=== PATIENT | male | born 1975 | race African-American/Black ===

== ENCOUNTER 2021-01-19 12:33 | Inpatient (IN) | payer MEDICAID ==
[~2021-01-19] VITALS: Ht 177.8 cm; Wt 66.8 kg
[2021-01-19 13:19] LABS: BASOPHILS % 0.9 % (0.0-2.0); EOSINOPHILS % 1.7 % (0.0-5.0); MEAN CORPUSCULAR HEMOGLOBIN 18.9 pg (28.0-32.0); MEAN CORPUSCULAR VOLUME 65.6 fL (80.0-94.0); MONOCYTES % 6.9 % (2.0-8.0); NEUTROPHILS % 74.5 % (40.0-76.0); PLATELET 372 x1000/uL (130-400); RED BLOOD CELL COUNT 3.46 mill/uL (4.7-6.1); RED CELL DISTRIBUTION WIDTH 17.6 % (11.6-14.6)
[2021-01-19 13:25] LABS: HEMATOCRIT. 22.7 % (42.0-52.0); HEMOGLOBIN. 6.5 g/dL (14.0-18.0)
[2021-01-19 13:29] LABS: CHLORIDE 111 mEq/L (98-107)
[2021-01-19 13:33] LABS: ETHANOL BLOOD < 10 mg/dL
[2021-01-19 13:46] LABS: PLATELET ESTIMATE NORMAL
[2021-01-19] MEDS ORDERED: ONDANSETRON HCL 4MG/2ML INJ IV PRN (17:00)
[2021-01-19] MEDS ORDERED: NITROGLYCERIN 0.4MG TABLET SL SL PRN (17:00)
[2021-01-19] MEDS ORDERED: GUAIFENESIN 200MG/10ML SUGAR FREE UDC PO PRN (17:00)
[2021-01-19] MEDS ORDERED: KETOROLAC 15MG/ML VIAL IV PRN (17:00)
[2021-01-19] MEDS ORDERED: IPRATROPIUM/ALBUTEROL 0.5-3(2.5)MG/3ML NEB NEB PRN (17:00)
[2021-01-19] MEDS ORDERED: DOCUSATE SODIUM 100MG CAPSULE PO PRN (17:00)
[2021-01-19] MEDS ORDERED: MAGNESIUM/ALUMINUM HYDROXIDE/SIMETHICONE 30ML UDC PO PRN (17:00)
[2021-01-19] MEDS ORDERED: CLONIDINE 0.1MG TABLET PO PRN (17:00)
[2021-01-19] MEDS ORDERED: ACETAMINOPHEN 325MG TABLET PO PRN ×2 (17:00)
[2021-01-19 17:40] LABS: T4 FREE 0.93 ng/dL (0.76-1.46)
[2021-01-19 17:43] LABS: FOLIC ACID (FOLATE) SERUM >20 ng/mL ng/mL (>5.38)
[2021-01-19 17:55] LABS: VITAMIN B12 SERUM 248 pg/mL (211-911)
[2021-01-19] MEDS ORDERED: ZOLPIDEM TARTRATE 5MG TABLET PO PRN (20:00)
[2021-01-19] MEDS: PANTOPRAZOLE SODIUM 40 MG/VIAL IV SCH (20:05)
[2021-01-19] MEDS ORDERED: POTASSIUM CHLORIDE 20MEQ TABLET SR PO NR (20:49)
[2021-01-19 22:06] VITALS: BP 102/61
[2021-01-19 22:17] LABS: CLARITY URINE CLEAR (CLEAR); COLOR URINE YELLOW (YELLOW); KETONES URINE NEGATIVE (NEGATIVE); LEUKOCYTE ESTERASE URINE NEGATIVE (NEGATIVE); NITRITE URINE NEGATIVE (NEGATIVE); OCCULT BLOOD URINE NEGATIVE (NEGATIVE); PH URINE 5.5 (4.5-8.0); PROTEIN URINE NEGATIVE (NEGATIVE); UROBILINOGEN URINE 0.2 E.U./dL (0.2-1.0)
[2021-01-19 22:30] LABS: *AMPHETAMINES SCREEN URINE NEGATIVE (NEGATIVE); *BARBITURATES SCREEN URINE NEGATIVE (NEGATIVE); *BENZODIAZEPINES SCREEN URINE NEGATIVE (NEGATIVE); *COCAINE SCREEN URINE NEGATIVE (NEGATIVE); CANNABINOID URINE SCREEN PRESUMTIVE POSITIVE (NEGATIVE); METHADONE URINE SCREEN NEGATIVE (NEGATIVE); OPIATES URINE SCREEN NEGATIVE (NEGATIVE)
[2021-01-19 22:31] LABS: PHENCYCLIDINE URINE SCREEN PRESUMTIVE POSITIVE (NEGATIVE)
[2021-01-19 22:37] VITALS: BP 102/61
[2021-01-20] VITALS: BP 108/71
[2021-01-20 04:00] VITALS: BP 116/75
[2021-01-20] MEDS: PANTOPRAZOLE SODIUM 40 MG/VIAL IV SCH ×2 (06:11→18:21)
[2021-01-20 06:16] LABS: CHLORIDE 113 mEq/L (98-107)
[2021-01-20 06:31] LABS: PHOSPHORUS 3.1 mg/dL (2.5-4.9)
[2021-01-20 07:10] LABS: BASOPHILS % 1.2 % (0.0-2.0); EOSINOPHILS % 5.4 % (0.0-5.0); HEMATOCRIT. 27.5 % (42.0-52.0); LYMPHOCYTES % 23.8 % (20.0-50.0); MEAN CORPUSCULAR VOLUME 68.6 fL (80.0-94.0); MEAN PLATELET VOLUME 7.8 fl (7.4-10.4); MONOCYTES % 8.6 % (2.0-8.0); PLATELET 356 x1000/uL (130-400); RED BLOOD CELL COUNT 4.01 mill/uL (4.7-6.1); RED CELL DISTRIBUTION WIDTH 19.4 % (11.6-14.6)
[2021-01-20 08:00] VITALS: BP 102/60
[2021-01-20] MEDS: IRON SUCROSE COMPLEX 100 MG/5 ML ML IV SCH (10:50)
[2021-01-20 12:00] VITALS: BP 107/68
[2021-01-20] MEDS ORDERED: PERMETHRIN 5% CREAM 60GM TOP NR (12:00)
[2021-01-20 16:00] VITALS: BP 105/71
[2021-01-20 20:00] VITALS: BP 108/74
[2021-01-21] VITALS: BP 121/67
[2021-01-21 04:00] VITALS: BP 126/67
[2021-01-21] MEDS: PANTOPRAZOLE SODIUM 40 MG/VIAL IV SCH ×2 (06:10→17:57)
[2021-01-21 07:13] LABS: BASOPHILS % 1.1 % (0.0-2.0); EOSINOPHILS % 6.3 % (0.0-5.0); HEMATOCRIT. 28.9 % (42.0-52.0); HEMOGLOBIN. 8.6 g/dL (14.0-18.0); LYMPHOCYTES % 18.3 % (20.0-50.0); MEAN CORPUSCULAR HEMOGLOBIN 20.1 pg (28.0-32.0); MEAN CORPUSCULAR VOLUME 67.5 fL (80.0-94.0); MEAN PLATELET VOLUME 7.7 fl (7.4-10.4); MONOCYTES % 7.5 % (2.0-8.0); NEUTROPHILS % 66.8 % (40.0-76.0); PLATELET 336 x1000/uL (130-400); RED BLOOD CELL COUNT 4.29 mill/uL (4.7-6.1); RED CELL DISTRIBUTION WIDTH 19.4 % (11.6-14.6)
[2021-01-21 07:26] LABS: CHLORIDE 106 mEq/L (98-107)
[2021-01-21] MEDS: IRON SUCROSE COMPLEX 100 MG/5 ML ML IV SCH (08:07)
[2021-01-21] MEDS ORDERED: PERMETHRIN 5% CREAM 60GM TOP NR (11:30)
[2021-01-21 12:00] VITALS: BP 107/66
[2021-01-21 16:00] VITALS: BP 110/73
[2021-01-21 20:00] VITALS: BP 104/59
[2021-01-22] VITALS: BP 112/57
[2021-01-22 04:00] VITALS: BP 103/46
[2021-01-22] MEDS: PANTOPRAZOLE SODIUM 40 MG/VIAL IV SCH (06:52)
[2021-01-22 08:00] VITALS: BP 101/50
[2021-01-22] MEDS: IRON SUCROSE COMPLEX 100 MG/5 ML ML IV SCH (08:37)
[2021-01-22 12:00] VITALS: BP 111/62
[2021-01-22 13:43] VITALS: BP 111/62
== END 2021-01-22 15:23 | disposition home or self-care (01) | DRG 663 ==
LOC: ER 12:53 → EDBD 12:53 → 5WST 16:14 → ENRESERV 21:04
PROVIDERS: ADMIT Internal Medicine; ATTEND Internal Medicine
PROC: 30233N1 Transfusion of Nonautologous Red Blood Cells into Peripheral Vein, Percutaneous Approach (ICD-10-PCS; principal; 2021-01-19)
DX: D62 Acute posthemorrhagic anemia (principal); G92 Toxic encephalopathy; E87.8 Other disorders of electrolyte and fluid balance, not elsewhere classified; E83.51 Hypocalcemia; D50.9 Iron deficiency anemia, unspecified; F10.21 Alcohol dependence, in remission; E87.6 Hypokalemia; F16.10 Hallucinogen abuse, uncomplicated; F12.90 Cannabis use, unspecified, uncomplicated; Z71.51 Drug abuse counseling and surveillance of drug abuser
CPT/HCPCS: 36415; 80048; 80053; 80061; 80305; 80320; 81003; 82270; 82607; 82728; 82746; 83036; 83540; 83550; 83735; 84100; 84439; 84443; 85025; 86850; 86900; 86920; 93005; 93970; 99285; C9113; J7040; P9016; G0480